=== PATIENT | male | born 1935 | race Caucasian/White ===

== ENCOUNTER → 2022-03-24 | Outpatient (CLI) | payer MEDICARE ==
[~2022-03-24] MED LIST: CYCLOBENZAPRINE10 MG PO; FEROSUL325 MG PO; FOLIC ACID-VIT1 EACH PO; IOPAMIDOL 370 MG/ML 100 ML INFUS..BTL INJ ONE; MECLIZINE HCL12.5 MG PO; OMEPRAZOLE40 MG PO; ULTRAM50 MG PO; VITAMIN D31 GM PO
[2022-03-24 15:59] LABS: CREATININE, SERUM 1.17 mg/dL (0.72-1.25)
== END ==
LOC: CT 15:15
PROVIDERS: ATTEND Internal Medicine Hematology & Oncology
DX: C22.0 Liver cell carcinoma (principal); B16.1 Acute hepatitis B with delta-agent without hepatic coma; H91.90 Unspecified hearing loss, unspecified ear; B18.2 Chronic viral hepatitis C; D61.818 Other pancytopenia; D46.9 Myelodysplastic syndrome, unspecified; G89.3 Neoplasm related pain (acute) (chronic)
CPT/HCPCS: 36415; 74177; 82565; 84520; Q9967